=== PATIENT | male | born 1955 | race Caucasian/White ===

== ENCOUNTER 2016-10-19 23:04 | Inpatient (IN) | payer OTHER ==
--- NOTE | ~2016-10-19 | CT71 ---
[facility] A Service of [facility] RADIOLOGY TEXT RESULTS PATIENT: AJIT LONDON LOCATION: [facility] : 55 UNIT #: [id number] AGE: [address]: Waldo Guzmán MD SEX: M ORDER DR: [id number] [id number] [facility] [place], [place] [address] [id number] MR#: [id number] Acc #: [id number] NAME: AJIT LONDON : 1955 SEX: M STUDY DATE/TIME: 10/19/2016 23:48 UNIT: C3A PCU ROOM: [facility] STUDY DESCRIPTION: CT Head Wo Contrast Attending Physician: Waldo Guzmán M.D. Ordering Physician: Yolanda Edwards M.D. [facility] REPORT This report is preliminary unless electronic signature is present EXAM Head CT, no contrast, 10/19/2016. INDICATION 61-year-old male with headache and vomiting, frontal headache, left arm drift. Confusion since 2200 hours tonight. TECHNIQUE Noncontrast CT brain was performed. This CT exam was performed with one or more of the following radiation dose reduction techniques: automatic exposure control, adjustment of mA and/or kV according to patient size, and iterative reconstruction. COMPARISON STUDIES No comparisons. FINDINGS CT BRAIN: Sulci and ventricles unremarkable. No midline shift. No evidence of acute intracranial hemorrhage. There is no mass, mass effect, or edema to suggest acute infarct. No extraaxial fluid collections are present. Globes intact. Bones intact. There is multifocal sinus disease. IMPRESSION 1. No clearly acute intracranial process. No evidence of acute intracranial hemorrhage. 2. Multifocal sinus disease. Dictated by... John Soriano M.D. [facility] A Service [facility] RADIOLOGY TEXT RESULTS PATIENT: AJIT LONDON LOCATION: [facility] : 55 UNIT #: [id number] AGE: [address]: Waldo Guzmán MD SEX: M ORDER DR: THIS IS AN ELECTRONICALLY VERIFIED REPORT John Soriano M.D. at 10/20/2016 9:59 PM YAS/bigg TD: 10/20/2016 10:17 JOB #: [id number] MEDICAL IMAGING REPORT Page 1 of 1 COPY
--- NOTE | ~2016-10-19 | EKG ---
PATIENT: AJIT LONDON UNIT #: [id number] Ventricular Rate: 80 BPM Atrial Rate: 80 BPM P-R Interval: 170 ms QRS Duration: 106 ms Q-T Interval: 382 ms QTC Calculation(Bezet): 440 ms P [place]: 63 degrees Calculated R [place]: 69 degrees Calculated T [place]: 55 degrees Diagnosis Line: Normal sinus rhythm Diagnosis Line: Normal ECG Diagnosis Line: No previous ECGs available Diagnosis Line: Confirmed by MADDY MILLS MD ([id number]) on 10/20/2016 Diagnosis Line: 11:01:35 PM INTERPRETING MD: LINA KELLER
--- NOTE | ~2016-10-19 | CT23 ---
[facility] A Service of [facility] & [facility] RADIOLOGY TEXT RESULTS PATIENT: AJIT LONDON LOCATION: [facility] 337-01 : 55 UNIT #: [id number] AGE: [address]: Waldo Guzmán MD SEX: M ORDER DR: [id number] [id number] [place], [place] [address] [id number] I MR#: [id number] Acc #: [id number] NAME: AJIT LONDON : 1955 SEX: M STUDY DATE/TIME: 10/20/2016 0:52 UNIT: CEDOF ROOM: [id number] STUDY DESCRIPTION: CT Angio Neck Attending Physician: Waldo Guzmán M.D. Ordering Physician: Yolanda Edwards M.D. Primary Care Physician: [facility] MEDICAL IMAGING REPORT This report is preliminary unless electronic signature is present EXAM CT ANGIO NECK Please see CT angio of the head for combined report. Dictated by... Amandeep Romero M.D. THIS IS AN ELECTRONICALLY VERIFIED REPORT Amandeep Romero M.D. at 10/20/2016 2:33 PM MARTY/royce TD: 10/20/2016 07:26 JOB #: [id number] MEDICAL IMAGING REPORT Page 1 of 1 COPY
--- NOTE | ~2016-10-19 | CT17 ---
[facility] A Service of [facility] RADIOLOGY TEXT RESULTS PATIENT: AJIT LONDON LOCATION: A 337-01 : 55 UNIT #: [id number] AGE: [address]: Waldo Guzmán MD SEX: M ORDER DR: [id number] [facility] [address] [facility]. [place], [place] [address] [id number] I MR#: [id number] Acc #: [id number] NAME: JAIT LONDON : 1955 SEX: M STUDY DATE/TIME: 10/20/2016 0:52 UNIT: CEDOF ROOM: [id number] STUDY DESCRIPTION: CT Angio Head Attending Physician: Waldo Guzmán M.D. Ordering Physician: Yolanda Edwards M.D. Primary Care Physician: [facility] MEDICAL IMAGING REPORT This report is preliminary unless electronic signature is present EXAM Head and neck CT angiogram with contrast, date 10/20/2016 PROCEDURE Axial contrast-enhanced head and neck CT angiogram with three-dimensional reformats. The CT exam was performed with one or more of the following radiation dose reduction techniques: automatic exposure control, adjustment of mA and/or kV according to patient size, and iterative reconstruction. COMPARISON: Head CT same date. CLINICAL HISTORY: Headache, confusion and abnormal physical exam with drift of the left arm since 10:00 p.m.. FINDINGS Slight emphysematous changes seen in the lung apices. There is cervical spinal degenerative change and the patient is nearly edentulous with lucency surrounding the remaining mandibular molars bilaterally. There is extensive bilateral maxillary and ethmoid sinus opacification but the skull base and calvaria are otherwise normal without bone erosion or destruction. There is a normal arch branching pattern without proximal great vessel stenosis. The vertebral artery origins are widely patent bilaterally. The carotid bifurcations are normal without calcification or other plaque or stenosis by NASCET or other criteria. The upper cervical vertebral and internal carotid arteries are normal. Intracranially the [place] is probably complete. There is probably a tiny right posterior communicator but not well seen but the [facility] A Service of [facility] RADIOLOGY TEXT RESULTS PATIENT: AJIT LONDON LOCATION: C3A 337-01 : 55 UNIT #: [id number] AGE: [address]: Waldo Guzmán MD SEX: M ORDER DR: anterior communicator is well identified and the left posterior communicator is large and patent. There is no convincing evidence of any intracranial aneurysm or flow-limiting stenosis is seen. No obvious occluded vessel is seen but there is a zone of hypoperfusion in the right temporal parietal lateral cortex. The occluded vessel is not identified, but this is clearly an area of hypoperfusion. It is non hemorrhagic. There is no mass or abnormal enhancement and the dural venous sinuses are normally patent. The cervical soft tissues are unremarkable. IMPRESSION 1. Normal cervical, common and internal and external carotid arteries including normal carotid bifurcations without plaque or flow-limiting stenosis and the vertebral arteries are normal as well. 2. While there is no intracranial aneurysm or flow-limiting stenosis, there is an obvious zone of hypoperfusion in the right temporoparietal cortex. The occluded vessel cannot be identified even in retrospect, suggesting it is probably occluded at its origin and simply not seen. This is probably an M3 branch vessel that is simply occluded at its origin. 3. No hemorrhage, mass or abnormal enhancement and the dural venous sinuses are normal. Dictated by... Amandeep Romero M.D. THIS IS AN ELECTRONICALLY VERIFIED REPORT Amandeep Romero M.D. at 10/20/2016 2:33 PM MARTY/royce TD: 10/20/2016 07:16 JOB #: [id number] MEDICAL IMAGING REPORT Page 1 of 1 COPY
--- NOTE | ~2016-10-19 | US37 ---
[facility] A Service of [facility] & [facility] RADIOLOGY TEXT RESULTS PATIENT: AJIT LONDON LOCATION: [facility] 337- : 55 UNIT #: [id number] AGE: [address]: Waldo Guzmán MD SEX: M ORDER DR: [id number] [facility] [address] [place], [place] [address] [id number] I MR#: [id number] Acc #: [id number] NAME: AJIT LONDON : 1955 SEX: M STUDY DATE/TIME: 10/21/2016 13:55 UNIT: C3A PCU ROOM: [facility] STUDY DESCRIPTION: US Carotid W/Doppler Bilateral Attending Physician: Waldo Guzmán M.D. Ordering Physician: Kimber Fregoso M.D. [facility] REPORT This report is preliminary unless electronic signature is present EXAM Carotid Doppler bilateral 10/21/2016 HISTORY Acute onset of confusion and vomiting and frontal headache 3 days ago with left arm drift. Brain MRI obtained 10/20/2016 demonstrated multiple acute non-hemorrhagic infarcts in the right frontal lobe and right temporal lobe and right parietal lobe. Evaluate for carotid stenosis. FINDINGS Garnica-scale carotid artery images were obtained as well as Doppler waveform spectral analysis and color flow Doppler imaging. The examination was interpreted according to NASCET criteria. There is no hemodynamically significant stenosis in either carotid artery. Peak systolic velocity in the right and left internal carotid arteries was 81 cm/sec and 91 cm/sec respectively. Antegrade blood flow is seen in both vertebral arteries. Only trace plaque was seen bilaterally. IMPRESSION No hemodynamically significant stenosis in either carotid artery. Dictated by... Amrit Bernstein M.D. THIS IS AN ELECTRONICALLY VERIFIED REPORT Amrit Bernstein M.D. at 10/22/2016 8:21 AM GUERRERO/geo TD: 10/21/2016 16:41 JOB #: [id number] MEDICAL IMAGING REPORT Page 1 of 1 COPY
--- NOTE | ~2016-10-19 | CO ---
Unit #: [id number] #: [id number] Patient: AJIT LONDON [id number] [facility] [address] [facility]. [place], [place] [address] [id number] MR#: [id number] NAME: AJIT LONDON ROOM: 337 Age: 61 Sex: M Admission Date: 10/20/2016 : 1955 Attending Physician: Waldo Guzmán M.D. [facility] CONSULTATION REPORT REASON FOR CONSULT TIA. PATIENT IDENTIFICATION This is a 61-year-old, right-handed, male evaluated in room 337 at [facility]. SOURCE OF INFORMATION Obtained from the patient, as well as the medical record. HISTORY OF PRESENT ILLNESS This is a 61-year-old, right-handed, male with a past medical history of tobacco abuse and chronic back pain who presented to [facility] with complaints of headache, nausea and vomiting, focal weakness, neglect and left facial droop. He was brought in via EMS, and apparently his symptoms had resolved upon arrival, as documented in the ED. Thus, he was not a candidate for any acute intervention with alteplase or thrombectomy. He had a CT of the head done without contrast that showed no clearly acute intracranial process, no evidence of acute intracranial hemorrhage. It did show multifocal sinus disease. The patient also had a CT angiogram of the head and neck, as well, that showed normal cervical, common internal and external carotid arteries, including normal carotid bifurcations without plaque or flow-limiting stenosis, and the vertebral arteries were normal, as well. No intracranial aneurysm or flow-limiting stenosis; however, there was concern about an obvious zone of hypoperfusion in the right temporoparietal cortex with occluded vessel not identified and simply not seen, concerning for probably an M3 branch vessel that is simply occluded at its origin. No hemorrhage, mass or abnormal enhancement, and the dural venous sinuses are normal. MRI of the brain was done this morning. It does show multiple acute non-hemorrhagic ischemic insults in the right frontal lobe with extension to posterior and upper right temporal lobe and adjacent anterior right parietal lobe measuring 6.4 x 3.7 cm approximately. Multiple other smaller lesions are also seen with recommendation for correlation clinically for possible posterior division right MCA territory stroke. Findings were discussed with Dr. Fregoso at the time of radiology read. The patient was seen by Dr. Fregoso today and discussed with him. He agrees with the plan and assessment. Unit #: [id number] #: [id number] Patient: AJIT LONDON On evaluation, the patient does have left lateral lower quadrantopia or (1) field cut. He also has some left visual neglect but otherwise is asymptomatic. He has an NIH of 2, initially thought to be NIH of 1 on my initial evaluation, but Dr. Fregoso evaluated the patient and noted the quadrantopia and, thus, making an NIH of 2. He denies any exacerbating or alleviating factors but reports persistent right-sided headache. He reports his nausea and vomiting has resolved. He denies any other associated ataxia, falls, complete loss of vision, double vision, speech or swallowing difficulty, focal weakness or paresthesia. Again, that has resolved. He denies any shortness of air, chest pain or palpitations, loss of consciousness or loss of awareness. PAST MEDICAL HISTORY 1. Chronic pain; specifically chronic back pain. 2. COPD. 3. Tobacco abuse. 4. Peptic ulcer disease. 5. Right ankle open reduction and internal fixation. ALLERGIES Formaldehyde, nickel, latex. HOME MEDICATIONS [place] 5/325 mg 1 tablet p.o. q.6 hours p.r.n. pain. FAMILY HISTORY Positive for diabetes mellitus and hypertension. SOCIAL HISTORY The patient lives with his . He has smoked a little less than a pack of tobacco (specifically, cigarettes) per day for the last 50 years. He reports social alcohol use but denies binge drinking or abuse. He denies illicit drug use. REVIEW OF SYSTEMS A 14-point review of systems was attempted. Pertinent positives are as discussed above; otherwise, negative. PHYSICAL EXAMINATION VITAL SIGNS: Temperature 98. He has been afebrile. Pulse 74, respirations 19, blood pressure 140/75. Blood pressure in the ER on arrival was 143/86. Oxygen saturation 93%. Height 5'5", weight 156 pounds. BMI 26. NEUROLOGIC EXAMINATION MENTAL STATUS: The patient is awake, alert and oriented to person, place, time, as well as events. No right/left confusion. No finger agnosia. No aphasia, dysarthria or apraxia. CRANIAL NERVE EXAM: As discussed above - left lateral quadrantopia with left visual neglect. Extraocular movements are intact. Sensation of the face and scalp is intact. Strength of muscles of facial expression is intact. Hearing is intact to voice and conversation. Tongue is midline. Uvula is midline. Palate elevation is normal. Head turning and shoulder shrug were unremarkable. Neck is supple. MOTOR EXAM: He demonstrates normal bulk and tone. Strength is equal, 5+/5 in all extremities surprisingly. SENSORY EXAM: Intact to soft touch and pinprick. No extinction Unit #: [id number] #: [id number] Patient: AJIT LONDON. GAIT: Gait and Romberg are deferred. REFLEXES: Unable to elicit. Toes are equivocal. COORDINATION: No past-pointing. No cerebellar signs. No truncal ataxia. DIAGNOSTIC STUDIES IMAGING: Please see above for MRI and CTA. Chest x-ray on 10/19/16 shows, per radiology report, low lung volumes with chronic appearing lung changes, including old healed granulomatous disease with probable atelectasis and scarring in the lung bases. No definite superimposed active disease. No pneumothorax. LABS: CRP 0.6. TSH 3.96. BMP unremarkable. Lipids show cholesterol of 192, triglycerides 86, LDL 107, HDL 68. Troponin less than 0.03. White blood cell count 14, hemoglobin 14.3, hematocrit 43.3, platelet count 256. BNP 80. Urine drug screen unremarkable. Alcohol level less than 5. Ammonia 26. PT 10, INR 1. IMPRESSION 1. Acute right MCA territory ischemic stroke. Questionable cardioembolic versus thromboembolic. 2. Tobacco abuse. Cessation encouraged. 3. Hyperlipidemia. LDL of 107. Will initiate statin therapy. 4. Headache secondary to stroke. PLAN Will continue aspirin, bedrest, IV fluids and Lovenox for DVT prophylaxis. Intensive statin therapy and recommend NAVEEN. May consider carotid ultrasound, if NAVEEN unremarkable, to correlate with CTA. Case discussed with Dr. Fregoso, and he agrees with the above. We will follow along with you. He has seen and evaluated the patient, as well, and he agrees with above. We thank you very much for allowing us to assist in the care of this patient. Dictated by... Maria Isabel Lovett A.P.R.N. for Daria Guerra/reji TD: 10/21/2016 16:03 JOB #: [id number] CONSULTATION REPORT Page 1 of 1 X Maria Isabel Lovett APRN CONSULTATION REPORT
--- NOTE | ~2016-10-19 | CR72 ---
[facility] A Service of [facility] RADIOLOGY TEXT RESULTS PATIENT: AJIT LONDON LOCATION: [facility] 337- : 55 UNIT #: [id number] AGE: [address]: Waldo Guzmán MD SEX: M ORDER DR: [id number] [facility] [address] [facility]. [place], [place] [address] [id number] I MR#: [id number] Acc #: [id number] NAME: AJTI LONDON : 1955 SEX: M STUDY DATE/TIME: 10/19/2016 23:28 UNIT: [address] ROOM: [facility] STUDY DESCRIPTION: CR Chest Single View Portable Attending Physician: Waldo Guzmán M.D. Ordering Physician: Yolanda Edwards M.D. Primary Care Physician: [facility] MEDICAL IMAGING REPORT This report is preliminary unless electronic signature is present EXAM Frontal chest 10/19/2016 INDICATIONS 61-year-old male with shortness of air and weakness tonight, vomiting. TECHNIQUE Frontal chest compared with 10/19/2011 FINDINGS There is mild thoracic levoscoliosis. Cardiac silhouette is within normal limits for technique. Lung volumes are low. There is bronchovascular crowding and probable atelectasis in the lower lung zones. There is also some degree of scarring in the right and to a lesser extent left lung bases. There is old healed granulomatous disease. No pneumothorax. IMPRESSION 1. Low lung volumes with chronic-appearing lung changes including old healed granulomatous disease with probable atelectasis and scarring in the lung bases. No definite superimposed active disease. No pneumothorax. Dictated by... John Soriano M.D. THIS IS AN ELECTRONICALLY VERIFIED REPORT John Soriano M.D. at 10/20/2016 10:00 PM YAS/royce TD: 10/20/2016 10:23 JOB #: [id number] [facility] A Service of [facility] RADIOLOGY TEXT RESULTS PATIENT: AJIT LONDON LOCATION: [facility] [id number] : 55 UNIT #: [id number] AGE: [address]: Waldo Guzmán MD SEX: M ORDER DR: MEDICAL IMAGING REPORT Page 1 of 1 COPY
--- NOTE | ~2016-10-19 | DS ---
Unit #: [id number] #: [id number] Patient: AJIT LONDON [id number] [address] [place], [place] [address] [id number] MR#: [id number] NAME: AJIT LONDON ROOM: 337 Age: 61 Sex: M Admission Date: 10/20/2016 : 1955 Discharge Date: 10/21/2016 Attending Physician: Waldo Guzmán M.D. Primary Care Physician: Replaced By [facility] Krystina DISCHARGE SUMMARY REASON FOR ADMISSION CVA. HISTORY OF PRESENT ILLNESS/HOSPITAL COURSE The patient is a 61-year-old male, who originally was admitted secondary to abrupt onset of vomiting, headache, as well as a facial drooping and left-sided weakness. Please see H and P for complete details of initial part of hospital stay. The patient had undergone a routine stroke protocol. Initial part of the hospital stay including CT angiogram of the head and neck as well as noncontrast CT. He also underwent an MRI brain without contrast. Ultimately, it was determined that he did have multiple acute nonhemorrhagic ischemic insult, which were noted in the right frontal lobe measuring approximately 6.4 x 3.7 cm proximally. His probable involvement of the right ICA and the neck given the multiple showered ischemic insult, which were noted within the right cerebral hemisphere. In regard to that, same consultation was placed to Dr. Fregoso of Neurology Services followed the patient throughout. Ultrasound of the bilateral carotids were also performed, which did not reveal any hemodynamically significant stenosis in an artery. In conjunction with the same, the patient underwent a NAVEEN by Dr. Lewis, which showed reduced ejection fraction. No acute atherosclerotic clot which was noted. In regard to the patient's reduced ejection fraction approximately 30% to 35%, we placed a formal consultation to Dr. Dikcinson of Cardiology Services and the patient underwent cardiac catheterization earlier today, which did not reveal any acute coronary artery disease and showed normal coronaries; however, did show a decreased ejection fraction of approximately 40% consistent with systolic heart failure. It seems most likely that his systolic heart failure secondary to chronic alcohol abuse as well as ongoing tobacco abuse. At this point in time, he has been cleared by both Neurology Services and Cardiology Services for discharge. At time of discharge, he will be maintained on beta omar, SHAWN inhibitor, statin medication, and aspirin and he has been instructed to follow up with primary care physician in the next 7 to 10 days for hospital followup. He was instructed to quit smoking as it is overall detrimental to his long-term health and/or wellbeing. He is well aware. Unit #: [id number] #: [id number] Patient: AJIT LONDON FINAL DISCHARGE DIAGNOSES 1. Acute cerebrovascular accident in middle cerebral artery/multiple other areas within the right frontal lobe with extensions into posterior upper right temporal lobe and adjacent right parietal lobes. 2. Systolic heart failure, acute likely secondary to alcohol abuse. 3. Alcohol abuse. 4. Tobacco abuse. DISCHARGE MEDICATIONS Lisinopril 5 mg p.o. daily, Lipitor 40 mg p.o. daily, Toprol-XL 25 mg one tablet p.o. daily, aspirin 81 mg p.o. daily. FOLLOWUP The patient is to follow with Dr. Maldonado as an outpatient, Neurology Services in 4 to 6 weeks. Follow up PCP in 7 to 10 days. DISCHARGE CONDITION Stable. DISCHARGE DISPOSITION Home. Dictated by... Sly Emanuel M.D. URBANO/henry TD: 10/22/2016 05:30 JOB #: [id number] DISCHARGE SUMMARY Page 1 of 1 X Sly Emanuel MD X DISCHARGE SUMMARY
--- NOTE | ~2016-10-19 | HP ---
Unit #: [id number] #: [id number] Patient: AJIT LONDON [id number] [address] [address] [id number] Jozef MR#: [id number] NAME: AJIT LONDON ROOM: 337 Age: 61 Sex: M Admission Date: 10/20/2016 : 1955 Attending Physician: Waldo Guzmán M.D. Primary Care Physician: [facility] HISTORY AND PHYSICAL REASON FOR ADMISSION CVA. HISTORY OF PRESENT ILLNESS The patient is a 61-year-old male whom I currently evaluated while on telemetry floor on date of 10/20/2016. He was admitted overnight. He stated that he had an abrupt onset of vomiting while he was at home. He got up after watching TV, went to the bathroom, vomited twice. He had an acute onset of a severe headache. He looked at his who noted that the patient's mouth appeared to be drooping, called EMS services. The patient was brought for concern for possible acute stroke. When seen and evaluated in the emergency room and upon arrival, his deficits actually spontaneously resolved. He had been having some uneasiness on his stomach as well as intractable headache, as mentioned above. He also had two vomiting episodes as mentioned above. PAST MEDICAL HISTORY 1. History of chronic pain syndrome. 2. Peptic ulcer disease. 3. Chronic back pain. 4. COPD history. 5. Tobacco abuse. PAST SURGICAL HISTORY Right ankle open reduction internal fixation. ALLERGIES Formaldehyde, nickel, latex. HOME MEDICATIONS Cassoday 5/325, one tablet p.o. q.6 p.r.n. FAMILY HISTORY Reviewed. Diabetes, hypertension. SOCIAL HISTORY Resides at home with his . Smokes one pack of cigarettes per day. Social alcohol use. REVIEW OF SYSTEMS Please see HPI. Twelve point otherwise negative except for those positives noted in the HPI. Unit #: [id number] #: [id number] Patient: AJIT LONDON PHYSICAL EXAMINATION VITAL SIGNS: Temperature 98, pulse 74, respiratory rate 19 and blood pressure 140/75. GENERAL APPEARANCE: The patient is a 61-year-old male lying comfortably, in no acute distress. HEAD EXAM: Atraumatic, normocephalic. EAR EXAM: Tympanic membranes do not reveal any erythema or injection. NECK EXAM: Supple. CVS: S1, S2 without murmur, regurg or gallop. RESPIRATORY: Clear. GI/ABDOMEN: Nontender, nondistended. EXTREMITIES: Lower extremity exam - no evidence of any lower extremity edema. No calf tenderness. SKIN EXAM: No rashes, no bruising noted. NEUROLOGICAL EXAM: Cranial nerves II-XII appear to be grossly intact. DIAGNOSTIC STUDIES IMAGING: Head CT performed on day of admission negative for acute ischemic eval. LABORATORY: Labs at time of admission included an elevated white count of 17, glucose 185. Alcohol level negative. Ammonia level negative. Urine tox screen negative. Urinalysis performed - unremarkable. Through hospital course, a stroke protocol was initiated overnight. The patient underwent a CT angiogram head, neck, as well as an MRI and neurological evaluation has already been done. MRI of brain showed ischemic infarct to the right MCA. CTA shows possible occlusion suspected given region of hypoperfusion but occult occlusion is not seen. NAVEEN has already been planned for and consultation to cardiology has already been placed. INITIAL ADMISSION DIAGNOSES 1. Ischemic infarct/acute cerebrovascular accident right middle cerebral artery region. 2. Left sided weakness and/or neglect. 3. Facial droop, now resolved. 4. Tobacco abuse. 5. Hyperlipidemia. 6. Chronic pain syndrome. PLAN Admission to telemetry floor. MRI already performed. Neurological consultation obtained. NAVEEN pending. Stroke protocol initiated. Routine hospital course to follow. Plans have been reviewed with patient in detail. He is well aware. Unit #: [id number] #: [id number] Patient: AJIT LONDON Dictated by Daria Valadez/odin TD: 10/20/2016 11:35 JOB #: [id number] HISTORY AND PHYSICAL Page 1 of 1 X Sly Emanuel MD HISTORY AND PHYSICAL
--- NOTE | ~2016-10-19 | EKG ---
PATIENT: AJIT LONDON UNIT #: [id number] Ventricular Rate: 69 BPM Atrial Rate: 69 BPM P-R Interval: 174 ms QRS Duration: 94 ms Q-T Interval: 398 ms QTC Calculation(Bezet): 426 ms P Preston: 23 degrees Calculated R Preston: 82 degrees Calculated T Preston: 39 degrees Diagnosis Line: Poor data quality, interpretation may be Diagnosis Line: adversely affected Diagnosis Line: Normal sinus rhythm Diagnosis Line: Low voltage QRS Diagnosis Line: Borderline ECG Diagnosis Line: No previous ECGs available Diagnosis Line: Confirmed by TREMAINE CLAYTON MD ([id number]) on 10/21/2016 Diagnosis Line: 10:33:19 PM INTERPRETING MD: MATILDE KELLER
--- NOTE | ~2016-10-19 | CO ---
Unit #: [id number] #: [id number] Patient: AJIT ORTIZ [id number] [facility]. [place], [place] [address] [id number] MR#: [id number] NAME: AJIT ORTIZ ROOM: 337 Age: 61 Sex: M Admission Date: 10/20/2016 : 1955 Attending Physician: Waldo Guzmán M.D. Primary Care Physician: [facility] Krystina Consultation Date: 10/21/2016 CONSULTATION REPORT REASON FOR CONSULTATION Abnormal transesophageal echocardiogram with LVEF found to be 30% to 35% with atherosclerosis of aorta and a new right MCA territorial ischemic stroke. HISTORY OF PRESENT ILLNESS This is a 61-year-old white male, who was brought into the emergency room with complaints of abrupt onset of vomiting and then acute onset of a severe headache. He was at home with his watching television at that time, his thought she notices his mouth appeared to be drooping, she called EMS and concerned he might be having a stroke. When they brought him into the emergency room, his deficits actually spontaneously resolved. He did continue to have some nausea and continue with headache. The patient has a history in the past of peptic ulcer disease, chronic pain syndrome from back problems, COPD and continues to smoke and he is a reformed alcohol abuse. After evaluation, the patient was found to have an ischemic infarct to the right MCA territory, it was probable cardioembolic in nature. His EKG showed sinus rhythm and initial cardiac enzymes were negative. His lipid profile did indicate he had hyperlipidemia. He was started on statin. His urine tox screen was negative. The patient had a NAVEEN today by Dr. Lewis which showed LVEF of 30% to 35% and with the PFO present. It did not show any ASD vegetation or clot in left atrial appendage. There was some mild atherosclerosis of aorta. Cardiology has been asked to evaluate the patient and do a workup for ischemic heart disease and assist with management. On interview with the patient, he denies having chest pain; pain in his neck, bilateral jaws, shoulders, arms, or elbow. He denies any palpitations. No dizziness, presyncope, or recent syncopal episodes. He has occasional dry cough, but no recent acute illness. 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 PAST MEDICAL HISTORY 1. Chronic back pain. 2. History of peptic ulcer disease in the past. Last EGD was in 2010 that revealed multiple ulcers and nqefgods-lr-xqrxhq duodenitis and gastritis, but no active bleeding. He also had some polyps on colonoscopy. 3. COPD. 4. Reformed alcohol abuse. 5. Nicotine abuse. 6. No stress or cardiac cath in the past. PAST SURGICAL HISTORY Unit #: [id number] #: [id number] Patient: AJIT ORTIZ 1. Left hip replacement (plans to have a right hip replacement). 2. Splenectomy. 3. Ulcer surgery. 4. Right ankle surgery. 5. On 10/13/2010, the patient had EGD that showed multiple ulcers and xktvbthq-xb-fjdrek duodenitis and gastritis, colonoscopy showed 2 polyps, status post polypectomy. HOME MEDICATIONS Lortab 5/325 one tablet p.o. q.i.d. p.r.n. ALLERGIES 1. Formaldehyde. 2. Nickel. 3. Latex. SOCIAL HISTORY The patient is on disability due to his chronic back problems. The patient smokes a pack of cigarettes a day. He has been smoking most of his adult life. He used to be a heavy drinker, quit that about 10 years ago, but drinks occasional social alcohol beverage but nothing excess. FAMILY HISTORY His father at the age of 78 from complications of diabetes, but he did have some type of PR, but does not clear of his details. Mother is still living. His siblings are in generally well health. REVIEW OF SYSTEMS See details in HPI. PHYSICAL EXAMINATION GENERAL: Mr. Ortiz is a 61-year-old white male, in no acute respiratory distress. He is awake, alert, and oriented. VITAL SIGNS: Blood pressure currently is 125/74, heart rate 72, respirations 18, temperature 97.6, O2 saturations 98% on room air. NECK: Trachea midline. No thyromegaly or lymphadenopathy. Mild carotid bruit noted. HEART: S1 and S2. Regular rate and rhythm. No clicks, murmurs, or rubs. LUNGS: Diminished. ABDOMEN: Soft, nontender. Positive bowel sounds present. EXTREMITIES: Pedal pulses are faint, but no pedal edema. DIAGNOSTIC STUDIES LABORATORY RESULTS: Glucose is 132, BUN 8, creatinine 0.7, eGFR is 101.9, sodium 138, potassium 3.9, chloride 106, CO2 of 23. Calcium is 8.7, magnesium is 1.8, total protein 7.2, albumin 4.6, bilirubin total 0.5, AST 28, ALT 21, alkaline phosphatase is 50. BNP 80. Hemoglobin A1c 5.4. Cholesterol 192, triglycerides 86, LDL is 107, HDL 68. TSH is 3.96. Alcohol level less than 5. WBCs on admission was 17.0, today 12.0; hemoglobin 14.1; hematocrit 43.0; and platelets of 271. Initial cardiac enzymes; CK-MB is less than 1.0. Troponin less than 0.05. CK-MB 1.1, troponin less than 0.05. INR is 1.0. Urine tox screen is negative. Urinalysis; trace of leuk esterase, 100 glucose, 0.2 urobilinogen, 2+ blood, 5 to 10 rbc's, otherwise unremarkable. IMAGING STUDIES: Chest x-ray, chronic appearing lung changes including old healed granulomatous disease probable atelectasis and scarring in the lung bases. Unit #: [id number] #: [id number] Patient: AJIT ORTIZ CT of the head without contrast, nothing acute. No evidence of acute intracranial hemorrhage, sinus disease. CT of head and neck with contrast shows normal cervical, common, internal, and external carotid arteries. Obvious zone of hypoperfusion in the right temporal parietal cortex, this occluded vessel could not be identified on this scan, however, probably could be occluded at its origin simply not seen. No hemorrhage or mass. MRI of the brain without contrast shows multiple acute nonhemorrhagic ischemic insults in the right frontal lobe with extension to the posterior upper right temporal lobe and adjacent anterior right parietal lobe. Multiple other small lesions seen this correlates with a possible posterior division of the right middle cerebral artery distribution stroke. CARDIOVASCULAR STUDIES: EKG shows normal sinus rhythm with ventricular rate 80 beats per minute. No acute ischemic changes. Poor R-wave progression, questionable Q-wave in V1 only. IMPRESSION 1. Acute right middle cerebral artery territorial ischemic stroke. 2. Hyperlipidemia. 3. Nicotine abuse. 4. Reformed alcohol abuse. 5. Left ventricular ejection fraction 30% to 35% on transesophageal echocardiogram with patent foramen ovale present and mild atherosclerosis of aorta. PLAN 1. Cardiology consult to assist with evaluation and management. There is a concern that the patient's LVEF is 30% to 35%. After Dr. Dickinson examined the patient per history he felt that the LV dysfunction is most likely secondary to old alcohol abuse. The patient needs to have an ischemic heart disease workup. In view of the his multiple risk factors, including the recent stroke and also his father sounds like he may have had some coronary artery disease and he was a diabetic and also with the fact that there was atherosclerosis disease seen in the aorta. The patient has been recommended to have a cardiac catheterization to further evaluate. 2. Discussed with the patient risks and benefits, including risk of bleeding, myocardial infarction, stroke, and even . The patient verbalizes understanding and agrees to proceed. 3. Continue the patient on a statin and he is also on a daily dose of Lovenox and full-dose of aspirin. The patient needs to be on a beta omar and SHAWN inhibitor which will be started today. 4. On exam, there are no signs or symptoms of unstable angina. His cardiac enzymes remain negative. His EKG did not show anything acute. 5. Encourage the patient to completely quit smoking and also to avoid any alcoholic beverages and avoid any alcohol. 6. Further recommendations pending per Dr. Dickinson after the cardiac cath. We will add an SHAWN inhibitor for the patient in lieu of the fact that his LVEF was 30% to 35% and monitor his blood pressure and heart rate closely. Make any adjustments if needed prior to his discharge. Dictated by... Maddie Rainey A.P.R.N. for Cesar Dickinson M.D. Unit #: [id number] #: [id number] Patient: AJIT ORTIZ SHARON/henry TD: 10/22/2016 02:29 JOB #: [id number] CONSULTATION REPORT Page 1 of 1 X Maddie Rainey APRN CONSULTATION REPORT
--- NOTE | ~2016-10-19 | MR18 ---
[facility] A Service of [facility] & [facility] RADIOLOGY TEXT RESULTS PATIENT: AJIT LONDON LOCATION: [facility] 337-01 : 55 UNIT #: [id number] AGE: [address]: Waldo Guzmán MD SEX: M ORDER DR: [id number] [facility] [address] [place], [place] [address] [id number] MR#: [id number] Acc #: [id number] NAME: AJIT LONDON : 1955 SEX: M STUDY DATE/TIME: 10/20/2016 7:53 UNIT: A U ROOM: [facility] STUDY DESCRIPTION: MR Brain Wo Contrast Attending Physician: Waldo Guzmán M.D. Ordering Physician: Kimber Fregoso M.D. [facility] This report is preliminary unless electronic signature is present. EXAM MRI of the brain without contrast dated 10/20/2016. COMPARISON CTA head and neck dated 10/20/2016. HISTORY Frontal headache, vomiting, confusion with left arm drift from 2200 hours on 10/19/2016. FINDINGS Multisequence, multiplanar imaging of the brain was obtained without contrast. Multiple restricted diffusion lesions are noted in the brain, particularly in the posterior aspect of right frontotemporal lobe extending to the adjacent anterior right parietal lobe. Scattered less than 1 cm restricted diffusion lesions are noted in the brain involving the right frontal lobe cortex, subcortical white matter of the right frontal, right parietal lobes. Lesion is also seen at the junction of the posterior limb of the right internal capsule with the adjacent external/extreme capsule. No associated hemorrhage, significant mass effect, or midline shift is seen. The larger of this lesion measures 6.4 x 3.7 cm and is probably in the posterior division of the right middle cerebral artery distribution. There are some increased T2 signal changes associated with these lesions. Increased T2 signal is also seen in the left cerebellar hemisphere, likely from old insult. Thick slices through the sella with the pituitary gland, pineal region are unremarkable. Degenerative changes are noted in the cervical spine. IMPRESSION 1. Multiple acute non-hemorrhagic ischemic insults are noted in the right frontal lobe with extension to posterior and upper right temporal lobe and adjacent anterior right parietal lobe measuring 6.4 x 3.7 cm approximately. Multiple other smaller lesions are also seen STS. [facility] A Service of [facility] & [facility] RADIOLOGY TEXT RESULTS PATIENT: AJIT LONDON LOCATION: [facility] 337-01 : 55 UNIT #: [id number] AGE: [address]: Waldo Guzmán MD SEX: M ORDER DR: as described above. Correlate clinically with a possible posterior division right middle cerebral artery distribution stroke, but there is probably involvement of the right ICA in the neck given the multiple showered ischemic insults in the right cerebral hemisphere. Refer to CT angiogram head and neck. 2. Attempts are made to contact Dr. Fregoso at 9:50 a.m. on 10/20/2016. Findings were discussed with him at 10:00 a.m. on 10/20/2016. Dictated by... Freddie Luis M.D. THIS IS AN ELECTRONICALLY VERIFIED REPORT Freddie Luis M.D. at 10/21/2016 11:14 AM CPR/tmw TD: 10/20/2016 12:36 JOB #: [id number] MRI CENTER REPORT Page 1 of 1 COPY
[~2016-10-19 23:04] MED LIST: BENADRYL PO; BENZONATATE PO; CIPRO PO; COUGH MED; DARVOCET-N 1001 TA2 PO; FLAGYL PO; FLEXERIL PO; FLEXERIL10 MG PO; IBUPROFEN; LORTAB 10-5001 EACH PO; MEDROL PO; MEDROL4 MG/DOSE- PO; METRONIDAZOLE PO; NO MEDICATIONS; PERCOCET5/325 PO; PHENERGAN12.5 MG PO; PHENERGAN25 MG PO; PREDNISONE PO; PREDNISONE10 MG PO; PRILOSEC20 MG PO; TAMIFLU75 M1 PO; VICODIN 5/500 T1 TAB PO; VICODIN PO; ZOFRAN ODT4 MG PO
[2016-10-19 23:30] LABS: BASOPHIL# 0.2 X10e3 (0-0.3); BASOPHIL% 1.4 % (0-2.5); EOSINOPHIL# 0.2 X10e3 (0-0.7); EOSINOPHIL% 1.1 % (0.0-7.0); HEMATOCRIT 44.8 % (38.0-50.0); LYMPHOCYTE# 4.6 X10e3 (1.0-3.5); LYMPHOCYTE% 27.3 % (17.0-45.0); MEAN CELL VOLUME 94.5 FL (83-96); MEAN CORPUSCULAR HEMOGLOBIN 31.6 PG (28-34); MEAN CORPUSCULAR HGB CONC 33.4 g/dL (30-36); MEAN PLATELET VOLUME 7.9 FL (6.5-11.5); MONOCYTE# 1.4 X10e3 (0-1.0); NEUTROPHIL# 10.5 X10e3 (1.5-7.1); NEUTROPHIL% 62.2 % (40-75); PLATELET COUNT 277 X10e3 (140-420); RED BLOOD COUNT 4.74 X10e (3.90-5.60); RED CELL DISTRIBUTION WIDTH 14.3 % (11.0-15.5)
[2016-10-19 23:31] LABS: URINE SOURCE CLEAN CATCH
[2016-10-19 23:36] LABS: DIFF IND YES
[2016-10-19 23:37] LABS: POC - CKMB <1.0 ng/mL (0.0-7.9); POC - TROPONIN <0.05 ng/mL (<=0.05)
[2016-10-19 23:39] LABS: PARTIAL THROMBOPLASTIN TIME 21.8 SECONDS (23.5-31.3)
[2016-10-19 23:41] LABS: URINE APPEARANCE CLEAR; URINE BILIRUBIN NEG (NEG); URINE BLOOD 2+ (NEG); URINE COLOR YELLOW; URINE GLUCOSE 100 MG/DL (NEG); URINE KETONE NEG (NEG); URINE LEUKOCYTE ESTERASE TRACE (NEG); URINE NITRATE NEG (NEG); URINE PROTEIN NEG (NEG); URINE SPECIFIC GRAVITY 1.024 (1.003-1.035); URINE UROBILINOGEN 0.2 MG/DL (NEG)
[2016-10-19 23:43] LABS: ACANTHOCYTES PRESENT; ANISOCYTOSIS SL; PLATELET ESTIMATE NORMAL (NORMAL)
[2016-10-19 23:44] LABS: DIFFERENTIAL COMMENT AYP.LYMPHS
[2016-10-19 23:44] LABS: URINE BACTERIA AUWI NEG (NEGATIVE); URINE SQUAMOUS EPITHELIAL CELL NONE SEEN /[HPF]; UWBCS1 AUWI 0-2 (0-5)
[2016-10-19 23:47] LABS: CULTURE INDICATED? NO
[2016-10-19 23:51] LABS: ALBUMIN SERUM 4.6 g/dL (3.5-5.0); ALKALINE PHOSPHATASE 50 U/L (32-92); ALT (SGPT) 21 U/L (10-40); AST (SGOT) 28 U/L (10-42); BILIRUBIN, DIRECT 0.2 mg/dL (0.0-0.2); BILIRUBIN,INDIRECT 0.3 mg/dL (0.0-0.9); BILIRUBIN,TOTAL 0.5 mg/dL (0.2-2.0); BLOOD UREA NITROGEN 12 mg/dL (9-23); CALCIUM SERUM 9.4 mg/dL (8.4-10.2); CARBON DIOXIDE 24 mmol/L (22-31); CHLORIDE 101 mmol/L (100-111); CREATININE SERUM 0.8 mg/dL (0.6-1.4); GLOM FILT RATE Estimated 96.5 mL/min (>60); GLUCOSE FASTING 185 mg/dL (70-110); MAGNESIUM 1.8 mg/dL (1.6-3.0); POTASSIUM 3.8 mmol/L (3.5-5.1); PROTEIN TOTAL SERUM 7.2 g/dL (6.0-8.3); SODIUM 135 mmol/L (135-145)
[2016-10-19 23:53] LABS: ALCOHOL BLOOD <5 mg/dL (0)
[2016-10-19 23:59] LABS: AMPHETAMINE NEG (NEG); BARBITURATES NEG (NEG); BENZODIAZEPINES NEG (NEG); COCAINE NEG (NEG); MARIJUANA NEG (NEG); OPIATES NEG (NEG); TRICYCLIC ANTIDEPRESSANTS NEG (NEG); U METHADONE NEG (NEG)
[2016-10-20 01:05] LABS: POC - CKMB 1.1 ng/mL (0.0-7.9); POC - TROPONIN <0.05 ng/mL (<=0.05)
[2016-10-20] MEDS ORDERED: LORTAB 5-325 M1 EACH PO (03:32)
[2016-10-20 07:16] LABS: BASOPHIL# 0.2 X10e3 (0-0.3); BASOPHIL% 1.4 % (0-2.5); EOSINOPHIL# 0.5 X10e3 (0-0.7); EOSINOPHIL% 3.3 % (0.0-7.0); HEMATOCRIT 43.3 % (38.0-50.0); HEMOGLOBIN 14.3 gm/dL (13.0-16.0); LYMPHOCYTE# 5.5 X10e3 (1.0-3.5); LYMPHOCYTE% 39.3 % (17.0-45.0); MEAN CELL VOLUME 95.1 FL (83-96); MEAN CORPUSCULAR HEMOGLOBIN 31.5 PG (28-34); MEAN CORPUSCULAR HGB CONC 33.1 g/dL (30-36); MEAN PLATELET VOLUME 7.8 FL (6.5-11.5); MONOCYTE% 6.8 % (3.0-12.0); NEUTROPHIL# 6.9 X10e3 (1.5-7.1); NEUTROPHIL% 49.2 % (40-75); PLATELET COUNT 256 X10e3 (140-420); RED BLOOD COUNT 4.55 X10e (3.90-5.60); RED CELL DISTRIBUTION WIDTH 14.3 % (11.0-15.5)
[2016-10-20 07:17] LABS: DIFF IND NO
[2016-10-20 08:08] LABS: BUN/CREATININE RATIO 12.85; CALCIUM SERUM 9.4 mg/dL (8.4-10.2); CREATININE SERUM 0.7 mg/dL (0.6-1.4); GLOM FILT RATE Estimated 101.9 mL/min (>60); POTASSIUM 4.1 mmol/L (3.5-5.1)
[2016-10-20 08:13] LABS: %MB 3.4 % (0.0-4.0); MB 2.6 ng/ml
[2016-10-20 16:38] LABS: %MB 3.3 % (0.0-4.0); MB 2.7 ng/ml
[2016-10-21 07:48] LABS: HEMOGLOBIN 14.1 gm/dL (13.0-16.0); MEAN CELL VOLUME 95.5 FL (83-96); MEAN CORPUSCULAR HEMOGLOBIN 31.3 PG (28-34); MEAN CORPUSCULAR HGB CONC 32.8 g/dL (30-36); MEAN PLATELET VOLUME 8.2 FL (6.5-11.5); RED BLOOD COUNT 4.5 X10e (3.90-5.60); RED CELL DISTRIBUTION WIDTH 14.3 % (11.0-15.5)
[2016-10-21 08:22] LABS: BUN/CREATININE RATIO 11.42; CALCIUM SERUM 8.7 mg/dL (8.4-10.2); CREATININE SERUM 0.7 mg/dL (0.6-1.4); GLOM FILT RATE Estimated 101.9 mL/min (>60); POTASSIUM 3.9 mmol/L (3.5-5.1)
[2016-10-21 18:36] LABS: PARTIAL THROMBOPLASTIN TIME 31.8 SECONDS (23.5-31.3)
[2016-10-21] MEDS ORDERED: ACETAMINOPHEN650 M1 PO (18:59)
[2016-10-21] MEDS ORDERED: BAYER ASPIRIN325 M1 PO (18:59)
[2016-10-21] MEDS ORDERED: LIPITOR40 MG PO (18:59)
[2016-10-21] MEDS ORDERED: LISINOPRIL5 MG PO (19:00)
[2016-10-21] MEDS ORDERED: TOPROL XL PO (19:00)
== END 2016-10-21 20:08 | disposition home or self-care (01) | DRG 64 ==
LOC: CED 23:04 → CEDOF 10-20 01:05 → C3A PCU 10-20 08:33
PROVIDERS: Internal Medicine; Internal Medicine Cardiovascular Disease; Student in an Organized Health Care Education/Training Program
PROC: B325YZZ Computerized Tomography (CT Scan) of Bilateral Common Carotid Arteries using Other Contrast (ICD-10-PCS; 2016-10-20)
PROC: B32RYZZ Computerized Tomography (CT Scan) of Intracranial Arteries using Other Contrast (ICD-10-PCS; 2016-10-20)
PROC: B32GYZZ Computerized Tomography (CT Scan) of Bilateral Vertebral Arteries using Other Contrast (ICD-10-PCS; 2016-10-20)
PROC: B328YZZ Computerized Tomography (CT Scan) of Bilateral Internal Carotid Arteries using Other Contrast (ICD-10-PCS; 2016-10-20)
PROC: B24BZZ4 Ultrasonography of Heart with Aorta, Transesophageal (ICD-10-PCS; principal; 2016-10-21)
PROC: 4A023N7 Measurement of Cardiac Sampling and Pressure, Left Heart, Percutaneous Approach (ICD-10-PCS; 2016-10-21)
PROC: B211YZZ Fluoroscopy of Multiple Coronary Arteries using Other Contrast (ICD-10-PCS; 2016-10-21)
PROC: B215YZZ Fluoroscopy of Left Heart using Other Contrast (ICD-10-PCS; 2016-10-21)
DX: I63.511 Cerebral infarction due to unspecified occlusion or stenosis of right middle cerebral artery (principal); I50.21 Acute systolic (congestive) heart failure; G81.94 Hemiplegia, unspecified affecting left nondominant side; Q21.1 Atrial septal defect; G89.4 Chronic pain syndrome; Z87.11 Personal history of peptic ulcer disease; J44.9 Chronic obstructive pulmonary disease, unspecified; F17.210 Nicotine dependence, cigarettes, uncomplicated; M54.9 Dorsalgia, unspecified; Z91.040 Latex allergy status; E78.5 Hyperlipidemia, unspecified; F10.10 Alcohol abuse, uncomplicated; I63.531 Cerebral infarction due to unspecified occlusion or stenosis of right posterior cerebral artery; I63.59 Cerebral infarction due to unspecified occlusion or stenosis of other cerebral artery; I70.0 Atherosclerosis of aorta; Z96.642 Presence of left artificial hip joint
CPT/HCPCS: 36415; 70450; 70496; 70498; 70551; 71010; 80048; 80061; 80076; 80307; 81003; 82140; 82550; 82553; 82947; 83036; 83735; 83880; 84443; 84484; 85025; 85027; 85610; 85730; 86140; 92523-GN; 92610; 93005; 93312; 93880; 96361; 96374; 97161; 97165; 99285; C1769; C1887; C1894; G0480; J1644; J1650; J2250; J2405; J3010; Q9967